=== PATIENT | male | born 1960 | race Caucasian/White ===

== ENCOUNTER 2023-06-12 14:03 | Outpatient (CLI) | payer OTHER | END 2023-06-12 14:04 | disposition home or self-care (01) | LOC: NAV RAD 14:03 | PROVIDERS: ATTEND Student in an Organized Health Care Education/Training Program | DX: M79.671 Pain in right foot (principal); M20.11 Hallux valgus (acquired), right foot; M25.871 Other specified joint disorders, right ankle and foot ==